=== PATIENT | female | born 1995 | race Caucasian/White ===

== ENCOUNTER 2017-05-28 10:02 | Emergency (ER) | payer OTHER, SELFPAY ==
[2017-05-28 10:21] VITALS: BP 143/98; PULSE 104; RESP 20; TEMP 36.5; O2SAT 98; BMI 45.1
--- NOTE | 2017-05-28 10:28 | HMH.EDUTC ---
[facility] – [place] Disposition Clinical Impression: Viral upper respiratory illness Disposition: Home, Self-Care Condition on Discharge: Good Instructions: DI for Viral Upper Respiratory Infection -- Adult Additional Instructions: * No sign of bacterial infection. Likely viral. Virus can take 7-14 days to run their course * Monitor Temp. Tylenol every 4 hours as needed no more then 5 times a day or 4000mg in 24 hours and/or ibuprofen every 6 hours as needed no more then 3200mg in 24 hours (as long as your primary care doctor has told you that it is ok to take both) for fever/aches/pain. ER if fever no less than 101 despite tylenol and ibuprofen * Encourage fluids, water, gatorade, powerade, pedialyte if infant/toddler/child * warm salt water gargles * warm fluids * sore throat lozenges * sleep elevated * humidifier/vaporizer Follow up with primary care IMMEDIATELY for new or worsening symptoms OR no noticeable improvement over the next 48-72 hours. 911 for difficulty breathing or swallowing Forms: Work/School Release Time of Disposition: 10:38 Medical Decision Making Vital Signs: 05/28/17 10:21 Temperature 97.7 F Temperature Source Temporal Artery Scan Pulse Rate [Brachial] 104 H Respiratory Rate 20 Blood Pressure [Left Arm] 143/98 Blood Pressure Mean [Left Arm] 113 Blood Pressure Source [Left Arm] Automatic Cuff Blood Pressure Position [Left Arm] Sitting 02 Sat by Pulse Oximetry 98 Oxygen Delivery Method Room Air - Jarrod Inquiry Pt receiving controlled substance: No [facility] [place] HPI - General Stated complaint: Cough Congestion Fever Time Seen by Provider: 05/28/17 10:22 Mode of Arrival: Ambulatory Source of Information: Patient Limitations: No Limitations Description of Symptoms (Recalled from Triage Doc. by RN): cough, congestion x 1 week HEENT Symptoms (Recalled from RN notes): Yes Resp Symptoms (Recalled from RN notes): Yes Skin Symptoms (Recalled from RN notes): No MS Symptoms (Recalled from RN notes): No Functional Status (Recalled from RN notes): NA - History of Present Illness Provider Complaint: Here w/ mom c/o nasal congestion and cough x 2-[address]s are bad and missing first day of college classes today because mom didn't want me to drive there . Requesting excuse. Pt denies fever, aches, chills. Mom thinks she has had a low grade fever at times. Father w/ congestion as well. Delsum seems to help. Hx of asthma. Hasn't taken medications since around 2010 per patient. Has not felt the need to use a rescue inhaler. - Related Data Home Medications Medication Instructions Recorded Confirmed Norethindrone-E.estradiol-Iron 1 mg PO DAILY 05/28/17 05/28/17 [Ubaldo Fe 1.5-30 Tablet] Allergies Allergy/AdvReac Type Severity Reaction Status Date / Time aspirin Allergy Intermediate Hives Verified 05/28/17 10:26 Penicillins Allergy Intermediate Hives Verified 05/28/17 10:26 Sulfa (Sulfonamide Allergy Intermediate Hives Verified 05/28/17 10:26 Antibiotics) - Worker's Comp Is this a Worker's Comp case?: No [facility] History I have reviewed the patient's past medical history: Yes Medical History: Reports:: Asthma (off meds since around 2010 per patient) Laterality Cases: Bilateral: Myringotomy (Ear Tubes) - *Social History Educational Level: Completed High School Smoking Status: Never smoker Alcohol Intake: never - Psychiatric History Expresses thoughts of harming self/others: None Suicide Plan Description: No Plan ROS Obtained: Yes Systems reviewed as appropriate & no additional complaints - Constitutional Constitutional: Denies body ache, Denies chills, Denies difficulty sleeping, Reports fatigue, Denies fever(s), Denies poor appetite - Eyes Eyes: Denies eye discharge - ENT Ears, Nose, Mouth, and Throat: Denies difficulty swallowing, Denies otalgia, Reports nasal congestion, Denies nasal discharge, Denies post nasal drip, Reports sore throat (in morning), Denies throat swelling - Car
--- NOTE | 2017-05-28 10:31 | ED_ITS ---
[facility] [place] Clinical Impression: Viral upper respiratory illness Disposition: Home, Self-Care Condition on Discharge: Good Instructions: DI for Viral Upper Respiratory Infection -- Adult Additional Instructions: * No sign of bacterial infection. Likely viral. Virus can take 7-14 days to run their course * Monitor Temp. Tylenol every 4 hours as needed no more then 5 times a day or 4000mg in 24 hours and/or ibuprofen every 6 hours as needed no more then 3200mg in 24 hours (as long as your primary care doctor has told you that it is ok to take both) for fever/aches/pain. ER if fever no less than 101 despite tylenol and ibuprofen * Encourage fluids, water, gatorade, powerade, pedialyte if infant/toddler/ child * warm salt water gargles * warm fluids * sore throat lozenges * sleep elevated * humidifier/vaporizer Follow up with primary care IMMEDIATELY for new or worsening symptoms OR no noticeable improvement over the next 48-72 hours. 911 for difficulty breathing or swallowing Forms: Work/School Release Time of Disposition: 10:38 Medical Decision Making Vital Signs: 05/28/17 10:21 Temperature 97.7 F Temperature Source Temporal Artery Scan Pulse Rate [Brachial] 104 H Respiratory Rate 20 Blood Pressure [Left Arm] 143/98 Blood Pressure Mean [Left Arm] 113 Blood Pressure Source [Left Arm] Automatic Cuff Blood Pressure Position [Left Arm] Sitting 02 Sat by Pulse Oximetry 98 Oxygen Delivery Method Room Air - Jarrod Inquiry Pt receiving controlled substance: No [facility] [place] HPI - General Stated complaint: Cough Congestion Fever Time Seen by Provider: 05/28/17 10:22 Mode of Arrival: Ambulatory Source of Information: Patient Limitations: No Limitations Description of Symptoms (Recalled from Triage Doc. by RN): cough, congestion x 1 week HEENT Symptoms (Recalled from RN notes): Yes Resp Symptoms (Recalled from RN notes): Yes Skin Symptoms (Recalled from RN notes): No MS Symptoms (Recalled from RN notes): No Functional Status (Recalled from RN notes): NA - History of Present Illness Provider Complaint: Here w/ mom c/o nasal congestion and cough x 2-[address] days[address]s are bad and missing first day of college classes today because mom didn' t want me to drive there . Requesting excuse. Pt denies fever, aches, chills. Mom thinks she has had a low grade fever at times. Father w/ congestion as well. Delsum seems to help. Hx of asthma. Hasn't taken medications since around 2010 per patient. Has not felt the need to use a rescue inhaler. - Related Data Home Medications Medication Instructions Recorded Confirmed Norethindrone-E.estradiol-Iron 1 mg PO DAILY 05/28/17 05/28/17 [Ubaldo Fe 1.5-30 Tablet] Allergies Allergy/AdvReac Type Severity Reaction Status Date / Time aspirin Allergy Intermediate Hives Verified 05/28/17 10:26 Penicillins Allergy Intermediate Hives Verified 05/28/17 10:26 Sulfa (Sulfonamide Allergy Intermediate Hives Verified 05/28/17 10:26 Antibiotics) - Worker's Comp Is this a Worker's Comp case?: No [facility] History I have reviewed the patient's past medical history: Yes Medical History: Reports:: Asthma (off meds since around 2010 per patient) Laterality Cases: Bilateral: Myringotomy (Ear Tubes) - *Social History Educational Level: Completed High School Smoking Status: Never smoker Alcohol Intake: never - Psy
== END 2017-05-28 10:50 | disposition home or self-care (01) ==
PROVIDERS: Emergency Provider Nurse Practitioner Family
DX: J06.9 Acute upper respiratory infection, unspecified (principal); J45.909 Unspecified asthma, uncomplicated; Z79.3 Long term (current) use of hormonal contraceptives; Z88.0 Allergy status to penicillin; Z88.2 Allergy status to sulfonamides
CPT/HCPCS: 99202